=== PATIENT | female | born 1985 | race Caucasian/White ===

== ENCOUNTER 2019-04-07 10:00 | Day surgery (SDC) | payer BC ==
[~2019-04-07 10:00] MED LIST: Lactated Ringers 1,000 ML IV SCH
[2019-04-07] MEDS ORDERED: Lactated Ringers 1,000 ML IV SCH (10:30)
[2019-04-07] MEDS ORDERED: fentaNYL 100 MCG/2 ML SDV ONE (11:07)
[2019-04-07] MEDS ORDERED: Midazolam 1 MG/ML 2 ML SDV ONE (11:07)
[2019-04-07] MEDS ORDERED: Propofol 200 MG/20 ML SDV ONE ×2 (11:07→11:59)
[2019-04-07] MEDS ORDERED: Lidocaine 1% 2 ML ONE (11:43)
--- NOTE | 2019-04-07 14:51 | OR ---
DATE OF PROCEDURE: 04/07/2019 SURGEON: Phoenix Mitchell MD PREOPERATIVE DIAGNOSIS: Strong family history of colon cancer, sister at age 36. POSTOPERATIVE DIAGNOSES: Unremarkable colonoscopy, strong family history of colon cancer, sister at age 36. PROCEDURE: Colonoscopy to the cecum. ANESTHESIA: IV anesthesia with monitored anesthesia care. INDICATION: This 33-year-old white female is referred for a colonoscopy because of a strong family history of colon cancer. Her sister had colon cancer at age 36. I counseled her for the procedure, including risks and alternatives, and she gave her informed consent to proceed. DESCRIPTION OF PROCEDURE: The patient was placed in the left lateral decubitus position. IV anesthesia was administered by the Anesthesia Service. Time-out was held. A rectal exam was performed, which was unremarkable. The flexible video Olympus colonoscope was introduced through her anus, up her rectum, out her colon all the way to the cecum. Once the cecum was reached, the scope was slowly withdrawn, examining the mucosa throughout. No mucosal abnormalities were noted. The scope was retroflexed in the rectum with the distal rectum appearing unremarkable. The scope was straightened and removed. She tolerated the procedure well. Phoenix Mitchell MD /[id number]
== END 2019-04-07 13:24 | disposition home or self-care (01) ==
LOC: JP.SDS 10:00
PROVIDERS: ATTEND Surgery
DX: Z12.11 Encounter for screening for malignant neoplasm of colon (principal); Z88.0 Allergy status to penicillin; Z88.5 Allergy status to narcotic agent; Z91.030 Bee allergy status; Z80.0 Family history of malignant neoplasm of digestive organs
CPT/HCPCS: 45378; 81025; J2001; J2250; J2704; J3010; J7120

== ENCOUNTER 2019-07-17 18:19 | Emergency (ER) | payer BC ==
--- NOTE | 2019-07-17 18:51 | EDM.PDOC ---
ED HPI GENERAL MEDICAL PROBLEM - General Chief Complaint: Chest Pain Stated Complaint: SHARP PAIN IN CHEST Time Seen by Provider: 07/17/19 18:49 Source of Information: Reports: Patient History Limitations: Reports: No Limitations - History of Present Illness INITIAL COMMENTS - FREE TEXT/NARRATIVE: pt is having sharp left sided chest pain. She states this comes and goes and is not constant. Onset: Today, Other (pt went home from work with jean today. She has been under alot of stress. She had a sudden loss of her father on the May, ) Duration: Hour(s): Location: Reports: Chest Associated Symptoms: Reports: Other (painin the chest. ) Anterior Chest Pain Score (Numeric/FACES): 8 - Related Data Allergies Allergy/AdvReac Type Severity Reaction Status Date / Time bee venom protein (honey bee) Allergy Anaphylactic Verified 07/17/19 18:35 Shock Penicillins Allergy Cannot Verified 07/17/19 18:35 Remember acetaminophen [From Vicodin] AdvReac Nausea and Verified 07/17/19 18:35 Vomiting hydrocodone [From Vicodin] AdvReac Nausea and Verified 07/17/19 18:35 Vomiting Home Meds: Home Meds Ascorbic Acid [Vitamin C] 1,000 mg PO DAILY 04/03/19 [History] Butalbital/Aspirin/Caffeine [Fiorinal 50-325-40 MG] 1 cap PO QID PRN 04/03/19 [ History] Norgestimate-Ethinyl Estradiol [Tri-Sprintec Tablet] 1 tab PO DAILY 04/03/19 [ History] EPINEPHrine [Epipen] 0.3 mg IM ASDIRECTED 04/07/19 [History] Past Medical History HEENT History: Reports: Impaired Vision, Otitis Media, Sinusitis Gastrointestinal History: Reports: GERD Genitourinary History: Reports: Renal Calculus Musculoskeletal History: Reports: Arthritis, Fracture, Neck Pain, Chronic Neurological History: Reports: Seizure, Vertigo - Infectious Disease History Infectious Disease History: Reports: Chicken Pox - Past Surgical History HEENT Surgical History: Reports: Tonsillectomy Female Surgical History: Reports: None Social & Family History - Family History Family Medical History: Noncontributory - Tobacco Use Smoking Status *Q: Never Smoker Second Hand Smoke Exposure: No - Caffeine Use Caffeine Use: Reports: Coffee, Soda - Recreational Drug Use Recreational Drug Use: No ED ROS GENERAL - Review of Systems Review Of Systems: See Below Constitutional: Reports: No Symptoms HEENT: Reports: No Symptoms Respiratory: Reports: Other (pain in the left chest. ) Cardiovascular: Reports: Chest Pain Endocrine: Reports: No Symptoms GI/Abdominal: Reports: No Symptoms, Diarrhea : Reports: No Symptoms Musculoskeletal: Reports: No Symptoms Skin: Reports: No Symptoms Neurological: Reports: No Symptoms Psychiatric: Reports: No Symptoms ED EXAM, GENERAL - Physical Exam Exam: See Below Free Text/Narrative:: pt arrived with pain in the left chest. This is sharp and stabbing from time to time. She has not fallen or has not done extra heavy work. She has not had a cough. No past history of cardiac problems. She is not sob. Exam Limited By: No Limitations General Appearance: Alert, Anxious, Mild Distress, Other (pupils are equal and reactive. ) Ears: Normal TMs Nose: Normal Inspection Throat/Mouth: Normal Inspection Head: Atraumatic Neck: Normal Inspection Respiratory/Chest: No Respiratory Distress, Other (pt does have tenderness in the left costosternal area. ) Cardiovascular: Regular Rate, Rhythm GI/Abdominal: Soft, Non-Tender (Female) Exam: Deferred Rectal (Female) Exam: Deferred Back Exam: Normal Inspection Extremities: Normal Inspection Neurological: Alert, Oriented, Normal Cognition Psychiatric: Normal Affect Course - Vital Signs Last Recorded V/S: Last Vital Signs Temp 37.1 C 07/17/19 18:46 Pulse 76 07/17/19 18:46 Resp 16 07/17/19 18:46 BP 146/77 H 07/17/19 18:46 Pulse Ox 96 07/17/19 18:46 - Orders/Labs/Meds Orders: Active Orders 24 hr Category Date Time Status EKG Documentation Completion [RC] ASDIRECTED Care 07/17/19 19:06 Active EKG 12 Lead [EK] Routine Ther 07/17/19 19:06 Ordered Labs: Laboratory Tests 07/17/19 07/17/19 07/17/19 Range/Units 19:30 19:30 19:30 WBC 10.4 (4.5-11.0) K/uL RBC 4.87 (3.30-5.50) M/uL Hgb 13.4 (12.0-15.0) g/dL Hct 41.6 (36.0-48.0) % MCV 85 (80-98) fL MCH 28 (27-31) pg MCHC 32 (32-36) % Plt Count 330 (150-400) K/uL Neut % (Auto) 49 (36-66) % Lymph % (Auto) 40 (24-44) % [place] % (Auto) 9 H (2-6) % Eos % (Auto) 2 (2-4) % Baso % (Auto) 1 (0-1) % Sodium 139 L (140-148) mmol/L Potassium 4.1 (3.6-5.2) mmol/L Chloride 104 (100-108) mmol/L Carbon Dioxide 24 (21-32) mmol/L Anion Gap 15.1 H (5.0-14.0) mmol/L BUN 8 (7-18) mg/dL Creatinine 0.7 (0.6-1.0) mg/dL Est Cr Clr Drug Dosing 89.56 mL/min Estimated GFR (MDRD) > 60 (>60) Glucose 88 (74-106) mg/dL Calcium 8.3 L (8.5-10.1) mg/dL Total Bilirubin 0.2 (0.2-1.0) mg/dL AST 14 L (15-37) U/L ALT 19 (12-78) U/L Alkaline Phosphatase 115 (46-116) U/L Troponin I < 0.017 (0.000-0.056) ng/mL Total Protein 7.3 (6.4-8.2) g/dL Albumin 3.0 L (3.4-5.0) g/dL Globulin 4.3 H (2.3-3.5) g/dL Albumin/Globulin Ratio 0.7 L (1.2-2.2) Meds: Medications Discontinued Medications Generic Name Dose Route Start Last Admin Trade Name Freq PRN Reason Stop Dose Admin Ibuprofen 600 mg 07/17/19 20:22 Motrin PO 07/17/19 20:23 ONETIME ONE - Re-Assessments/Exams Free Text/Narrative Re-Assessment/Exam: 07/17/19 20:27 pt had tenderness in the left costosternal area. Her ekg looked good. Her trop was normal. Pt did not have alot of discomfort in the time she was in the ER. Departure - Departure Time of Disposition: 20:20 Disposition: Home, Self-Care 01 Condition: Fair Clinical Impression: Chest wall pain Referrals: PCP,None [Primary Care Provider] - Forms: ED Department Discharge Care Plan Goals: moist heat to the area of discomfort, motrin 600mg qid with food for the inflamation, think about how your work desk is structured. Sepsis Event Note - Evaluation Sepsis Screening Result: No Definite Risk - Focused Exam Vital Signs: Vital Signs Temp Pulse Resp BP Pulse Ox 07/17/19 18:46 37.1 C 76 16 146/77 H 96 Date Exam was Performed: 07/17/19 Time Exam was Performed: 20:24 - My Orders Last 24 Hours: My Active Orders 07/17/19 19:06 EKG Documentation Completion [RC] ASDIRECTED EKG 12 Lead [EK] Routine - Assessment/Plan Last 24 Hours: My Active Orders 07/17/19 19:06 EKG Documentation Completion [RC] ASDIRECTED EKG 12 Lead [EK] Routine
[2019-07-17] MEDS ORDERED: Ibuprofen 600 MG Tab PO ONE (20:22)
== END 2019-07-17 20:41 | disposition home or self-care (01) ==
LOC: JP.ED 18:19
DX: R07.89 Other chest pain (principal); Z98.890 Other specified postprocedural states; Z91.030 Bee allergy status; Z88.0 Allergy status to penicillin
CPT/HCPCS: 36415; 80053; 84484; 85025; 93005; 99285-25; A9270-GY